=== PATIENT | female | born 1980 | race African-American/Black ===

== ENCOUNTER 2016-11-08 02:46 | Emergency (ER) | payer OTHER ==
--- NOTE | ~2016-11-08 | EKG ---
PATIENT: HANANE DUMONT UNIT #: [id number] Ventricular Rate: 89 BPM Atrial Rate: 89 BPM P-R Interval: 182 ms QRS Duration: 88 ms Q-T Interval: 362 ms QTC Calculation(Bezet): 440 ms P [place]: 76 degrees Calculated R [place]: 80 degrees Calculated T [place]: 62 degrees Diagnosis Line: Normal sinus rhythm Diagnosis Line: Normal ECG Diagnosis Line: When compared with ECG of 08-NOV-2016 00:48, Diagnosis Line: (unconfirmed) Diagnosis Line: No significant change was found Diagnosis Line: Confirmed by JULY MANCUSO MD ([id number]) on 11/08/2016 Diagnosis Line: 7:18:41 PM INTERPRETING MD: JAMEE SIMPSON
[2016-11-08 02:31] LABS: BASOPHIL% 0.1 % (0-2.5); EOSINOPHIL# 0.2 X10e3 (0-0.7); EOSINOPHIL% 2.1 % (0.0-7.0); HEMOGLOBIN 13.1 gm/dL (12.0-16.0); LYMPHOCYTE# 3.4 X10e3 (1.0-3.5); LYMPHOCYTE% 32.4 % (17.0-45.0); MEAN CELL VOLUME 92.9 FL (83-96); MEAN CORPUSCULAR HEMOGLOBIN 31.1 PG (28-34); MEAN CORPUSCULAR HGB CONC 33.5 g/dL (30-36); MEAN PLATELET VOLUME 8.2 FL (6.5-11.5); MONOCYTE# 0.6 X10e3 (0-1.0); MONOCYTE% 5.6 % (3.0-12.0); NEUTROPHIL# 6.2 X10e3 (1.5-7.1); NEUTROPHIL% 59.8 % (40-75); PLATELET COUNT 190 X10e3 (140-420); RED CELL DISTRIBUTION WIDTH 13.2 % (11.0-15.5); WHITE BLOOD COUNT 10.5 X10e3 (4.0-10.5)
[2016-11-08 02:33] LABS: DIFF IND NO
[2016-11-08 02:40] LABS: POC - CKMB <1.0 ng/mL (0.0-7.9); POC - TROPONIN <0.05 ng/mL (<=0.05)
[~2016-11-08 02:46] MED LIST: ABILIFY PO; ANALPRAM HC RC; B COMPLEX1 CA1 PO; CIPRO PO; CLINDAMYCIN HC300 MG PO; COLACE PO; CORRECTOL5 MG PO; DIAZEPAM PO; DULCOLAX5 MG; FIORINAL CAPSUL1 CAP PO; FLEXERIL PO; FLEXERIL10 MG PO; HYDROCODONE-APA1 T30 PO; KETOPROFEN PO; LAMICTAL PO; LODINE PO; LORTAB 5/500 TA1 TA1 PO; NORCO 10/325 TA1 TAB PO; OMEPRAZOLE40 MG PO; OXYCONTIN PO; OXYCONTIN10 MG PO; PEPCID PO; PERCOCET5/325 PO; PHENERGAN PO; PREDNISONE PO; PROZAC PO; ULTRAM PO; VICODIN PO; VOLTAREN50 MG PO; VYVANSE50 MG PO; ZOFRAN PO; ZOLOFT50 MG PO; ZOVIRAX800 MG PO
[2016-11-08 02:56] LABS: ALBUMIN SERUM 4.3 g/dL (3.5-5.0); BILIRUBIN, DIRECT 0.1 mg/dL (0.0-0.2); BILIRUBIN,INDIRECT 0.5 mg/dL (0.0-0.9); BILIRUBIN,TOTAL 0.6 mg/dL (0.2-2.0); BUN/CREATININE RATIO 22.5; CALCIUM SERUM 8.9 mg/dL (8.4-10.2); CREATININE SERUM 0.8 mg/dL (0.6-1.4); GLOM FILT RATE Estimated 111.6 mL/min (>60)
== END 2016-11-08 03:20 | disposition home or self-care (01) ==
LOC: CED 02:46
PROVIDERS: Emergency Medicine
DX: I49.3 Ventricular premature depolarization (principal); E87.6 Hypokalemia; F32.9 Major depressive disorder, single episode, unspecified; Z90.49 Acquired absence of other specified parts of digestive tract; Z98.51 Tubal ligation status
CPT/HCPCS: 36415; 80048; 80076; 82553; 83735; 84484; 85025; 93005; 99284

== ENCOUNTER 2017-03-05 08:22 | Emergency (ER) | payer OTHER ==
[~2017-03-05] VITALS: Ht 175.3 cm; Wt 69.8 kg
--- NOTE | ~2017-03-05 | CT2 ---
[facility] A Service of [facility] RADIOLOGY TEXT RESULTS PATIENT: HANANE DUMONT LOCATION: [facility] : 84 UNIT #: [id number] AGE: [address]: Muna Milligan SEX: F ORDER DR: [id number] [facility]. [place], [place] [address] [id number] MR#: [id number] #: [id number] NAME: HANANE DUMONT : 1980 SEX: F STUDY DATE/TIME: 03/05/2017 10:02 UNIT: [facility] ROOM: STUDY DESCRIPTION: CT Abd and Pelv W Cont Attending Physician: Muna Milligan P.A.-C. Ordering Physician: Muna Milligan P.A.-C. Primary Care Physician: Rafa Mcdonald M.D. MEDICAL IMAGING REPORT This report is preliminary unless electronic signature is present EXAM CT of the abdomen and pelvis with contrast. INDICATIONS Abdominal pain and cramping since this morning. Lower pelvic pain. TECHNIQUE CT of the abdomen and pelvis was performed following the administration of IV contrast. Coronal and sagittal reformatted images were obtained. This CT exam was performed with one or more of the following radiation dose reduction techniques: automatic exposure control, adjustment of mA and/or kV according to patient size, and iterative reconstruction. COMPARISON Comparison with 07/13/2014. FINDINGS The lung bases are clear. Focal fatty infiltration of the liver adjacent to the falciform ligament. Cholecystectomy. The spleen is unremarkable. The kidneys are unremarkable. The adrenal glands are unremarkable. Pancreas is unremarkable. PELVIS: Retroverted uterus. Physiologic adnexal cyst on the right measuring about 2.7 cm. The colon is unremarkable. The appendix is normal. There is no free fluid. The bone windows are unremarkable. IMPRESSION 1. No acute intraabdominal or pelvic abnormality. 2. Cholecystectomy. 3. Physiologic right adnexal cyst. [facility] A Service [facility] RADIOLOGY TEXT RESULTS PATIENT: HANANE DUMONT LOCATION: [facility] : 84 UNIT #: [id number] AGE: [address]: Muna Milligan SEX: F ORDER DR: Dictated by... Geronimo Romo M.D. THIS IS AN ELECTRONICALLY VERIFIED REPORT Geronimo Romo M.D. at 03/07/2017 8:00 AM Maria TD: 03/05/2017 11:40 JOB #: [id number] MEDICAL IMAGING REPORT Page 1 of 1 COPY
[2017-03-05 09:15] LABS: BASOPHIL% 0.7 % (0-2.5); EOSINOPHIL# 0.1 X10e3 (0-0.7); EOSINOPHIL% 2.2 % (0.0-7.0); HEMATOCRIT 40.1 % (35.0-45.0); HEMOGLOBIN 13.6 gm/dL (12.0-16.0); LYMPHOCYTE# 1.9 X10e3 (1.0-3.5); LYMPHOCYTE% 32.6 % (17.0-45.0); MEAN CELL VOLUME 94.1 FL (83-96); MEAN PLATELET VOLUME 8.2 FL (6.5-11.5); MONOCYTE# 0.4 X10e3 (0-1.0); MONOCYTE% 6.1 % (3.0-12.0); NEUTROPHIL# 3.4 X10e3 (1.5-7.1); NEUTROPHIL% 58.4 % (40-75); PLATELET COUNT 195 X10e3 (140-420); RED BLOOD COUNT 4.26 X10e (3.90-5.30); RED CELL DISTRIBUTION WIDTH 12.9 % (11.0-15.5); WHITE BLOOD COUNT 5.7 X10e3 (4.0-10.5)
[2017-03-05 09:18] LABS: DIFF IND NO
[2017-03-05 09:24] LABS: URINE SOURCE CLEAN CATCH
[2017-03-05 09:35] LABS: URINE APPEARANCE CLOUDY; URINE BILIRUBIN NEG (NEG); URINE BLOOD 3+ (NEG); URINE COLOR ORANGE; URINE GLUCOSE NEG (NEG); URINE KETONE NEG (NEG); URINE LEUKOCYTE ESTERASE 1+ (NEG); URINE NITRATE NEG (NEG); URINE PH 5.5 (5-8); URINE PROTEIN 1+ (NEG); URINE SPECIFIC GRAVITY 1.026 (1.003-1.035)
[2017-03-05 09:37] LABS: CULTURE INDICATED? YES; U HYALINE CASTS AUWI 0-2 /[LPF]; URBCS1 AUWI INNUM /[HPF] (0-2); URINE BACTERIA AUWI 1+ (NEGATIVE); URINE SQUAMOUS EPITHELIAL CELL OCC /[HPF]
[2017-03-05 09:42] LABS: BUN/CREATININE RATIO 12.5; CALCIUM SERUM 8.8 mg/dL (8.4-10.2); CREATININE SERUM 0.8 mg/dL (0.6-1.4); GLOM FILT RATE Estimated 111.6 mL/min (>60)
== END 2017-03-05 10:50 | disposition home or self-care (01) ==
LOC: CED 08:22 → CFTX 08:22 → CED 09:53 → CFTX 10:50
PROVIDERS: Physician Assistant
DX: N30.00 Acute cystitis without hematuria (principal); N83.201 Unspecified ovarian cyst, right side; F17.210 Nicotine dependence, cigarettes, uncomplicated; Z90.49 Acquired absence of other specified parts of digestive tract
CPT/HCPCS: 36415; 74177; 80048; 81003; 84703; 85025; 87086; 96374; 96375; 99284; J1885; J2405; Q9967